=== PATIENT | male | born 1940 | race Caucasian/White ===

== ENCOUNTER 2020-08-27 12:56 | Outpatient (CLI) | payer MEDICARE, MEDICAID, SELFPAY ==
--- NOTE | ~2020-08-27 | CT_ITS ---
EXAMINATION: CT chest wo con EXAM DATE: 08/27/2020 13:33 INDICATION: pneumonia, COPD. TECHNIQUE: Spiral CT of the chest without contrast. Axial, coronal and sagittal images were reviewe d. Coronal maximum intensity pixel images of chest reviewed. The dose-length product (DLP) for this examination was 213.63 mGy-cm. The exposure was tailored according to patient size (auto mA exposur e control), and iterative reconstruction (ASIR) was used as additional dose reduction technique. Comp herveson is made to prior examination from 04/13/2019. FINDINGS: Right upper lobe scarring. There is moderate emphysema. On prior study there was a cavitar y region in the left lower lobe. Now in similar or same location there is masslike region measuring u p to 6 cm, with some smaller amount of adjacent less well-defined airspace disease. Could be pneumoni a, but follow-up exam is recommended to exclude underlying cancer. Small left pleural effusion. Some evidence of tracheomalacia. Tracheobronchial tree is patent. Ther e is no mediastinal, hilar or axillary lymphadenopathy. There is no pneumothorax. There is mild t o moderate coronary arterial calcification, arterial sclerosis. Lungs are moderately hyperinflated ca using a narrow cardiac silhouette. Upper abdomen is unremarkable. There is a chronic moderate compr ession fracture of the T8 vertebral body. There are no osteoblastic or osteolytic lesions identified. IMPRESSION: 1. Masslike left lower lobe opacity with smaller adjacent airspace disease. Probably focal pneumonia but follow-up indicated to exclude underlying cancer. Consider baseline chest x-ray for follow-up or in absence of that a follow-up chest CT after treating for pneumonia. 2. Moderate emphysema and hyperinflation. 3. Small left pleural effusion. Reviewed, dictated and finalized at location A. ER MACHINE OPERATOR IMPRESSION: 1. Masslike left lower lobe opacity with smaller adjacent airspace disease. Pr obably focal pneumonia but follow-up indicated to exclude underlying cancer. Co nsider baseline chest x-ray for follow-up or in absence of that a follow-up [facility] st CT after treating for pneumonia. 2. Moderate emphysema and hyperinflation. 3. Small left pleural effusion.
== END 2020-08-27 12:57 | disposition home or self-care (01) ==
PROVIDERS: PCP Family Medicine
DX: J18.9 Pneumonia, unspecified organism (principal); J44.9 Chronic obstructive pulmonary disease, unspecified; R92.8 Other abnormal and inconclusive findings on diagnostic imaging of breast; J43.9 Emphysema, unspecified; J90 Pleural effusion, not elsewhere classified
CPT/HCPCS: 71250

== ENCOUNTER 2020-12-30 09:09 | Emergency (ER) | payer OTHER, MEDICARE, MEDICAID, SELFPAY ==
[2020-12-30] VITALS (14 sets, daily range): BP systolic 99–148; BP diastolic 56–81; PULSE 67–115; RESP 15–38; O2SAT 71–97
--- NOTE | ~2020-12-30 | XR_ITS ---
EXAMINATION: XR abdomen NG/feed tube insert, XR chest ET placement DATE: 12/30/2020 09:42 INDICATION: Shortness of breath. Endotracheal tube and orogastric tube placement. TECHNIQUE: 1. A single frontal view of the chest was obtained. 2. A supine view of the lower chest and abdomen was obtained for evaluation of feeding tube placemen t. COMPARISON: Chest CT dated 08/27/2020 FINDINGS: Chest: Endotracheal tube tip 2.4 cm above the ada. Emphysema. Moderate-sized right pneumothorax. There is leftward shift of the normal sized heart and mediastinum consistent with tension pneumothorax. Blunt ing at the right costophrenic angle which could be related to depression of the diaphragm resulting f rom the tension pneumothorax and/or tiny right pleural effusion. Large left pleural effusion with opa cification of a large portion of the left hemithorax. Opacities in the residual aerated portions of t he left lung which likely represent atelectasis although underlying pneumonia not excludable. There a re a couple calcified nodules in the right lung along with calcified bilateral hilar lymph nodes cons istent with old granulomatous disease. Instantly noted azygos lobe and fissure in the right upper vinay g zone. KUB: Nasogastric tube tip in proximal side port in the body of the stomach. Abdominal aortic endoluminal s tent graft. There are dilated gas-filled loops of large and small bowel which could be due to ileus o r obstruction. IMPRESSION: 1. Moderate-sized likely tension right pneumothorax. Dr. Nunez discussed these findings with Dr. Ant iverson at 9:44 AM. 2. Large left pleural effusion with partial collapse of the left lung. Underlying pneumonia not exclu dable. 3. Dilated gas-filled loops of large and small bowel which could represent ileus or obstruction. 4. Endotracheal tube and nasogastric tube in expected positions. Reviewed, dictated and finalized at location A. IMPRESSION: 1. Moderate-sized likely tension right pneumothorax. Dr. Nunez discussed the se findings with Dr. Briggs at 9:44 AM. 2. Large left pleural effusion with partial collapse of the left lung. Underlyi ng pneumonia not excludable. 3. Dilated gas-filled loops of large and small bowel which could represent ileu s or obstruction. 4. Endotracheal tube and nasogastric tube in expected positions.
--- NOTE | 2020-12-30 09:18 | PC.NURSE ---
EDP and respiratory at bedside at this time. Etomidate 50mg given at 0922 Rocuronium 50mg given at 0922 EDP intubating patient at this time 0923. 23 at the lip with 7.5 tube. Color change noted at this time. EDP and respiratory present.
--- NOTE | 2020-12-30 09:30 | ED.SOB ---
HPI - SOB/Dyspnea General Chief Complaint: Shortness of Breath/Dyspnea Stated Complaint: resp distress Time Seen by Provider: 12/30/20 09:15 Source: EMS Mode of arrival: EMS Limitations: clinical condition History of Present Illness HPI Narrative: Patient is a 80-year-old male with a history of COPD, hypertension, dementia, who presents for evaluation of difficulty breathing. Patient had been on Levaquin for community-acquired pneumonia at the [facility] in which he resides. Patient was noted to be fatigued this morning with increased work of breathing. Patient was placed on 3 L via nasal cannula and EMS was called. At the time of EMS arrival, patient was minimally responsive. He was mildly hypotensive and tachycardic. Afebrile. Patient would awaken to verbal stimuli, otherwise unable to participate in history. Glucose was greater than 200. Patient was placed on CPAP and transported to our facility. Additional history cannot be obtained at the time of assessment. Full code based on [facility] paperwork. Related Data Allergies Allergy/AdvReac Type Severity Reaction Status Date / Time No Known Allergies Allergy Unverified 12/30/20 13:42 Review of Systems Review of Systems: ROS unobtainable: Yes unobtainable due to mental status PMFSH Social History Social History (System 12/30/20 @ 13:42 by Ariadne Schaefer) Smoking status: Former smoker Tobacco type: cigarettes Gender identity (if verbalized by the patient): Male Spiritual care concerns: No Exam Narrative: Exam Narrative: GENERAL: Somnolent, eyes intermittently open, thin, ill appearing HEAD: Normocephalic, atraumatic. EYES: PERRLA and EOMI. ENT: Nares clear, no rhinorrhea or epistaxis. Mucous membranes dry NECK: Supple. CHEST: Respiratory distress, on CPAP, use of accessory muscles to breathe, decreased breath sounds in the left lung, coarse breath sounds right lung HEART: Tachycardic, sinus rhythm ABDOMEN:Non distended, non tender EXTREMITIES: Normal range of motion. No edema. Cool extremities. SKIN: Dry, cool, cyanotic appearing NEURO: Unable to assess secondary to mental status. No obvious facial droop. Limited spontaneous movement. Course Vital Signs Vital signs: Vital Signs Pulse Rate 106 H 12/30/20 09:09 Respiratory Rate 38 H 12/30/20 09:09 Blood Pressure 103/78 12/30/20 09:09 Pulse Oximetry 78 L 12/30/20 09:09 Pulse Rate 67 12/30/20 16:04 Respiratory Rate 21 H 12/30/20 16:04 Blood Pressure 99/58 L 12/30/20 16:04 Pulse Oximetry 78 L 12/30/20 16:04 Procedures Intubation Intubation #1: Intubation Date: 12/30/20 Intubation Time: 09:40 Time out performed: Yes sedative: Etomidate Mg Given: 10 paralytic: Rocuronium Mg Given: 50 Laryngoscope: other (VL) Tube Size (cm): 7.5 Method of Intubation: orotracheal Number of Attempts: 1 Tube Secured Depth (cm): 25 Tube Secured Location: teeth Tube Placement Confirmation: visualized tube passing through cords, equal breath sounds bilaterally, no breath sounds over epigastrium and confirmation by capnometry Patient Tolerated Procedure: well and no complications MDM - SOB/Dyspnea MDM Narrative Medical decision making narrative: Patient is a 80-year-old who presented via EMS in acute respiratory failure. Patient is somnolent, not protecting his airway. Patient is borderline hypotensive, tachycardic, tachypneic and hypoxic. Given patient's mental status, decision was made to intubate the patient. Physical exam notable for an ill-appearing, thin, dehydrated appearing patient with coarse breath sounds and decreased breath sounds on the left and the right. I did obtain an EKG which did not show evidence of STEMI. IV access obtained and blood cultures were drawn. Patient was started on IV fluids with 30 mL/kg fluid bolus given concern for sepsis. He was started on broad-spectrum ant
[2020-12-30] MEDS: SODIUM CHLORIDE 0.9% IV 1,600 ML/1,000 ML BAG 999 ML IV CONT (09:40)
--- NOTE | 2020-12-30 09:44 | ECG_ITS ---
Measurements Intervals Lancing Rate: 109 P: 85 ID: [id number] QRS: 31 QRSD: 86 T: 55 QT: 318 QTc: 429 Interpretive Statements SINUS TACHYCARDIA LOW QRS VOLTAGE IN LIMB LEADS BORDERLINE R WAVE PROGRESSION, ANTERIOR LEADS BORDERLINE ST-T WAVE ABNORMALITY- HIGH LATERAL LEADS BASELINE ARTIFACT- I, II, III, AVR, AVL, AVF, V3-V6 ABNORMAL ECG Electronically Signed On 12-30-2020 10:46:35 CDT by Davon Garcia D.O.
[2020-12-30 09:47] LABS: Alveolar/Arterial O2 Gradient 509.7 mmHg; Base Excess ABG -6.8 mEq/l (+/-2.0); Carboxyhemoglobin 0.6 % THb (0-2.0); Fractional Inspired Oxygen 100 %; HCO3 ABG 21.9 mEq/l (22.0-26.0); Methemoglobin ABG 0.3 %THb (0-1.5); Oxygen Content ABG 19.1 %vol (16.0-22.0); Oxygen Saturation ABG 98.3 % (95.0-100.0); Oxyhemoglobin 97.1 % THb (90.0-100.0); PCO2 ABG 57.5 mmHg (35.0-45.0); PO2 ABG 145.8 mmHg (80.0-100.0); PO2 FiO2 Ratio Arterial Blood 1.46 %; Total Hemoglobin 13.8 g/dL (12.0-18.0)
[2020-12-30] MEDS: IPRATROPIUM BR 0.02% INH SOLN 0.5 MG/2.5 ML VIAL 1 MG (09:47)
[2020-12-30 09:49] LABS: Device VENTILATOR; Site Drawn LEFT BRACHIAL; pH ABG 7.199 (7.350-7.450)
[2020-12-30 09:50] LABS: Arterial Blood Gas PEEP 8 cmH2O; Arterial Blood Gas Tidal Volume 460 ml; Arterial Blood Gas Vent Mode CMV; Arterial Blood Gas Ventilator rate 18 /MIN
[2020-12-30 10:04] LABS: Basophils Absolute Auto 0.1 K/mm3 (0.0-0.1); Basophils Percent Auto 0.4 % (0.2-1.2); Eosinophils Absolute Auto 0.2 K/mm3 (0-0.3); Eosinophils Percent Auto 1.1 % (0-4.4); Hematocrit 49.7 % (42.0-52.0); Hemoglobin 15.1 g/dL (14.0-18.0); Immature Granulocyte Absolute 0.13 K/mm3 (0.00-0.031); Immature Granulocyte Percent A 0.7 % (0-0.5); Lymphocytes Absolute Auto 0.81 K/mm3 (0.9-3.2); Lymphocytes Percent Auto 4.4 % (18.3-44.2); Mean Corpuscular HGB Conc 30.4 g/dl (32-36); Mean Corpuscular Hemoglobin 26.9 pg (26-34); Mean Corpuscular Volume 88.4 fl (80-100); Mean Platelet Volume 11.4 fl (7.4-10.4); Monocytes Absolute Auto 1.2 K/mm3 (0.1-0.6); Monocytes Percent Auto 6.6 % (2.6-8.5); Neutrophils Percent Auto 86.8 % (45.5-73.1); Platelet Count Result 321 k/mm3 (150-375); Red Blood Count 5.62 M/mm3 (4.6-6.20); Red Cell Distribution Width 14.8 % (11.5-14.5); White Blood Count 18.4 K/mm3 (4.5-10.0)
[2020-12-30 10:17] LABS: Platelet Estimate Adequate (Adequate); Poikilocytosis 1+ (NORMAL)
[2020-12-30 10:27] LABS: Lactic Acid Reflex 5.3 mmol/L (0.7-2.1)
--- NOTE | 2020-12-30 10:59 | PC.NURSE ---
EDP at bedside to perform needle decompression, upper right side chest. T3 line. patient's son present at this time, requesting patient to be extubated at this time.
--- NOTE | 2020-12-30 11:05 | PC.NURSE ---
Patient's urine sent down for the second time. Phlebotomy at bedside attempting to draw patient's blood due to difficulty obtaining samples.
[2020-12-30 11:09] LABS: Add Urine Microscopic? YES; Appearance Urine Cloudy (Clear); Bilirubin Urine Negative (Negative); Blood Urine Negative (Negative); Color Urine Amber (Yellow); Glucose Urine UA Negative (Negative); Hyaline Casts Urine 30-49 /lpf; Ketones Urine Negative (Negative); Leukocyte Esterase Ur 3+ LEU/UL (Negative); Mucus Urine Few /lpf; Nitrate Urine Negative (Negative); Protein Urine 2+ mg/dL (Negative); Specific Grav Ur 1.013 (1.001-1.035); Squamous Epithelial Cell Urine Rare /hpf (Few); Urobilinogen Urine Negative mg/dL (<2.0); WBC Urine >75 /hpf
[2020-12-30] MEDS: fentaNYL CITRATE INJ (*CRX) 100 MCG/2 ML VIAL (11:10)
--- NOTE | 2020-12-30 11:10 | PC.NURSE ---
Patient given 20mcg fentanyl per EDP verbal order
--- NOTE | 2020-12-30 11:12 | PC.NURSE ---
Respiratory and EDP with patient's son at bedside at this time, patient extubate at 1112
--- NOTE | 2020-12-30 11:16 | PC.NURSE ---
patient on bipap machine at this time, respiratory at bedside.
[2020-12-30 11:35] LABS: INR 1.2; Prothrombin Time 15.8 Seconds (11.1-14.7)
[2020-12-30 11:37] LABS: Partial Thromboplastin Time 27.7 SECONDS (22.3-36.8)
--- NOTE | 2020-12-30 12:11 | PC.NURSE ---
[facility] updated on pt status.
[2020-12-30 12:19] LABS: CRP 7.4 mg/dL (<1.0)
--- NOTE | 2020-12-30 12:19 | PC.NURSE ---
Hospice called for patient information
[2020-12-30 12:40] LABS: Alanine Aminotransferase 27 U/L (4-50); Alkaline Phosphatase 87 U/L (38-126); Anion Gap 13 mmol/L (8-16); Aspartate Amino Transferase 30 U/L (17-59); Bilirubin,Total 0.8 mg/dL (0.2-1.3); Blood Urea Nitrogen 23 mg/dL (9-20); Calcium 8.1 mg/dL (8.4-10.2); Carbon Dioxide 20 mmol/L (22-30); Chloride 110 mmol/L (98-107); Estimated CRCL calculation 39 ml/min; Estimated Glomerular Filt Rate > 60; Glucose 172 mg/dL (75-110); Lipase 205 U/L (23-300); Potassium 3.5 mmol/L (3.4-5.0); Sodium 143 mmol/L (137-145)
[2020-12-30 12:47] LABS: Troponin I 0.187 ng/mL (0.000-0.034)
[2020-12-30 13:13] LABS: Reflex Lactic Acid Yes or No Add Lactic
--- NOTE | 2020-12-30 14:56 | PC.NURSE ---
Pharmacy and associate financial planner aware at this time that fentanyl and propofol drips handed to pharmacist to credit patient at this time. pharmacist states that she will take them back downstairs at this time.
== END 2020-12-30 16:45 | disposition hospice, inpatient (51) ==
PROVIDERS: Emergency Provider Emergency Medicine; PCP Family Medicine
DX: J96.90 Respiratory failure, unspecified, unspecified whether with hypoxia or hypercapnia (principal); J93.9 Pneumothorax, unspecified; A41.9 Sepsis, unspecified organism; N39.0 Urinary tract infection, site not specified; Z87.891 Personal history of nicotine dependence; R00.0 Tachycardia, unspecified; J44.9 Chronic obstructive pulmonary disease, unspecified; I10 Essential (primary) hypertension; F03.90 Unspecified dementia, unspecified severity, without behavioral disturbance, psychotic disturbance, mood disturbance, and anxiety
CPT/HCPCS: 31500; 36415; 36600; 51702; 80053; 81001; 82375; 82805; 83050; 83605; 83690; 84484; 85025; 85610; 85730; 86140; 87040; 87086; 93005; 94640; 96361; 96365; 96366; 96367; 96368; 96375; 99291; A9270; C9803; J0456; J0692; J0696; J3010; J3370; J7030; U0003; U0005

== ENCOUNTER 2020-12-30 14:04 | HOS | payer OTHER, MEDICARE, MEDICAID, SELFPAY ==
--- NOTE | 2020-12-30 17:07 | PC.NURSE ---
This patient, Amarjit Levin, was admitted to 3 Med Surg Room 318-01 on 12/30/20 @ 1700. Patient/family oriented to hospital policies and general routines including ID bracelet, bed and alarms, visiting hours, pain management, procedures, bathroom and other care routines, personal items, smoking policy, room service/diet, and visiting hours. Information on how to activate the Rapid Response Team has been discussed. Patient/Family are encouraged to report perceived risks to care and to ask questions if they do not understand what they are told or what they should do.
[2020-12-30] MEDS: HYDROmorphone HCL/PF (*CRX) 50 MG in SODIUM CHLORIDE 0.9% IV 95 ML IV CONT (18:01)
[2020-12-30 18:03] VITALS: BP 94/44; PULSE 59; RESP 26; TEMP 36; O2SAT 97
[2020-12-30 20:00] VITALS: PULSE 63; RESP 8; O2SAT 86
[2020-12-30 20:48] VITALS: BP 99/49; PULSE 63; RESP 8; TEMP 35.8; O2SAT 86
[2020-12-31 08:00] VITALS: RESP 24
[2020-12-31] MEDS: GLYCOPYRROLATE INJ (*SP) 0.2 MG/ML VIAL 0.1 MG IV PUSH (12:16)
[2020-12-31] MEDS: LORazepam INJ (*CRX) 2 MG/ML VIAL 1 MG IV PUSH (12:17)
--- NOTE | 2020-12-31 20:17 | PM.IMHP ---
H&P: HPI History of Present Illness Date/Time: 12/31/20 20:17 Chief Complaint: Uncontrolled dyspnea Narrative: 80[facility] resident with COPD was treated with Levaquin for community-acquired pneumonia. His respiratory status worsened. EMS was summoned and [facility] int[facility] at the [facility] because he was listed as a full code. He was brought the emergency department where he was found to be in severe respiratory metabolic acidosis. Family wish that he be extubated. He was unresponsive at the time and remained unresponsive after extubation. He was on continuous BiPAP and struggling to breathe. Family decided to pursue comfort care only. He was admitted inpatient hospice service. Six months ago who is living at home with his son and required assist with 6 of 6 ADLs. PPS was 60. He was alert to person and able to follow commands. Had a regular diet with a fair appetite. He was incontinent of bowel and bladder at times. After romana COVID-19 in September 2020 [facility] to a [facility]. Review of Systems Review of Systems: ROS unobtainable: Yes unobtainable due to medical condition PMFSH Past Medical History Medical History (Updated 12/31/20 @ 21:05 by King Long MD) Emphysema/COPD Hyperlipidemia Hypertension Surgical History Surgical History (Updated 12/31/20 @ 20:18 by King Long MD) H/O inguinal hernia repair Family History Family History (System 12/30/20 @ 13:42 by Ariadne Schaefer) Father No problems noted. Mother No problems noted. Social History Social History (System 12/30/20 @ 13:42 by Ariadne Schaefer) Smoking status: Former smoker Tobacco type: cigarettes Gender identity (if verbalized by the patient): Male Spiritual care concerns: No Meds Home Medications and Allergies Allergies Allergy/AdvReac Type Severity Reaction Status Date / Time No Known Allergies Allergy Unverified 12/30/20 13:42 Vital Signs Vital Signs - 24 hr 12/30/20 20:48 12/31/20 08:00 Temperature 96.5 F L Pulse Rate 63 Respiratory Rate 8 L 24 H Blood Pressure 99/49 L Pulse Oximetry 86 L Exam Narrative: Exam Narrative: Chronically ill elderly gentleman lying in his hospital bed with ineffective respirations and no tachypnea. Oxygen in place with by nasal cannula. He does not respond to verbal or tactile stimuli. Mouth breathing with dry mucosa. Neck with no JVD. Barrel chest with diminished breath sounds throughout. Heart rhythm and rate are regular without audible murmurs. Abdomen is scaphoid with hypoactive bowel sounds. Extremities are cool with diminished pulses. Muscle tone is decreased and symmetric throughout. Cranial nerves appear symmetric. Assessment and Plan Assessment and plan (1) Palliative care by specialist: Code(s): Z51.5 - Encounter for palliative care Status: Acute Assessment and Plan: Qualifies for general inpatient status due to uncontrolled dyspnea requiring continuous IV hydromorphone for control Remainder of palliative regimen as ordered Discussed at length with son and daughter at bedside (2) Emphysema/COPD: Qualifiers: Emphysema type: unspecified Qualified Code(s): J43.9 - Emphysema, unspecified Code(s): J43.9 - Emphysema, unspecified Status: Acute (3) Acute respiratory failure with hypoxia and hypercarbia: Code(s): J96.01 - Acute respiratory failure with hypoxia; J96.02 - Acute respiratory failure with hypercapnia Status: Acute
[2021-01-01 08:00] VITALS: PULSE 58; RESP 12; O2SAT 85
[2021-01-01] MEDS: HYDROmorphone HCL/PF (*CRX) 50 MG in SODIUM CHLORIDE 0.9% IV 95 ML IV CONT (17:45)
--- NOTE | 2021-01-04 20:58 | PM.DDS ---
Discharge Sum: Prov Provider Primary care physician: Vic Elizabeth MD Admitting provider: King Long MD Discharge Sum: Diag Contributing Factors (1) Acute respiratory failure with hypoxia and hypercarbia: (2) Emphysema/COPD: Discharge Sum: Summary Date and Time Date of admission: 12/30/20 14:04 Summary Details: Admitted to inpatient hospice for palliative care. Medications titrated to comfort. Patient peacefully. Additional Data Attending physician: King Long MD
== END 2021-01-01 18:40 | disposition expired | DRG 951 ==
PROVIDERS: Admitting Provider Internal Medicine; PCP Family Medicine; Visit Provider Internal Medicine
DX: Z51.5 Encounter for palliative care (principal); J96.01 Acute respiratory failure with hypoxia; J96.02 Acute respiratory failure with hypercapnia; J43.9 Emphysema, unspecified; I10 Essential (primary) hypertension; E78.5 Hyperlipidemia, unspecified
CPT/HCPCS: A9270; J1170; J2060